=== PATIENT | male | born 1970 | race Two or more races ===

== ENCOUNTER 2023-12-15 12:31 | Emergency (ER) | payer OTHER ==
[~2023-12-15] VITALS: Ht 180.3 cm; Wt 77.1 kg
[2023-12-15] MEDS ORDERED: ADULT ASPIRIN81 MG PO (12:41)
[2023-12-15 13:45] LABS: HEMOGLOBIN 15.5 g/dL (13-16.00); MEAN CELL VOLUME 93.8 fL (80.0-100.00); MEAN CORPUSCULAR HEMOGLOBIN 32.3 pg (27.00-32.0); MEAN CORPUSCULAR HGB CONC 34.5 g/dl (32.0-36.0); PLATELET COUNT 208 K/uL (150-450); RED CELL DISTRIBUTION WIDTH 12.3 % (11.5-14.5)
[2023-12-15 14:11] LABS: CALCIUM 9.4 mg/dL (8.5-10.1); CREATININE SERUM 0.93 mg/dL (0.70-1.30); GFR 84.99; POTASSIUM 4.03 mEq/L (3.5-5.1)
[2023-12-15 14:51] LABS: URINE APPEARANCE Clear; URINE BILIRRUBIN Negative (NEGATIVE); URINE BLOOD Negative; URINE COLOR Dark Yellow; URINE GLUCOSE Negative (NEGATIVE); URINE LEUKOCYTE Negative; URINE NITRATE Negative; URINE PROTEIN Negative (NEGATIVE)
[2023-12-15 15:00] LABS: URINE BACTERIA 7.5 uL (0.0-1933); URINE RBC 3.7 uL (0.0-20.8)
[2023-12-15 15:05] LABS: URINE EPITHELIAL CELLS 0.6 uL (0.0-38.8); URINE WBC 0.7 uL (0.0-23.2)
[2023-12-15] MEDS ORDERED: KETOROLAC TROMETHAMINE 30 MG VIAL IM STA (15:51)
== END 2023-12-15 16:21 | disposition home or self-care (01) ==
LOC: ER 12:32
PROVIDERS: General Practice
DX: N50.812 Left testicular pain (principal); N44.2 Benign cyst of testis; Z88.8 Allergy status to other drugs, medicaments and biological substances

== ENCOUNTER 2024-05-30 12:20 | Emergency (ER) | payer OTHER ==
[~2024-05-30] VITALS: Ht 180.3 cm; Wt 77.1 kg
[~2024-05-30 12:20] MED LIST: ADULT ASPIRIN81 MG PO
[2024-05-30] MEDS ORDERED: KETOROLAC TROMETHAMINE 30 MG VIAL IV ONE (15:00)
[2024-05-30] MEDS ORDERED: KETOROLAC TROMETHAMINE 30 MG VIAL ONE (15:08)
[2024-05-30 15:55] LABS: HEMATOCRIT 46.3 % (39.0-48.0); HEMOGLOBIN 15.7 g/dL (13-16.00); MEAN CELL VOLUME 91.5 fL (80.0-100.00); MEAN CORPUSCULAR HGB CONC 33.9 g/dl (32.0-36.0); PLATELET COUNT 206 K/uL (150-450); RED BLOOD COUNT 5.06 M/uL (4.00-6.00); RED CELL DISTRIBUTION WIDTH 12.6 % (11.5-14.5)
[2024-05-30 16:14] LABS: CALCIUM 9.8 mg/dL (8.5-10.1); CREATININE SERUM 0.9 mg/dL (0.70-1.30); GFR 88.27; POTASSIUM 5.16 mEq/L (3.5-5.1)
[2024-05-30 16:27] LABS: PH,URINE 5.5 (5.0-8.0); URINE BILIRRUBIN Negative (NEGATIVE); URINE BLOOD Negative; URINE COLOR Yellow; URINE GLUCOSE Negative (NEGATIVE); URINE KETONE Trace (NEGATIVE); URINE LEUKOCYTE Negative; URINE NITRATE Negative; URINE PROTEIN Negative (NEGATIVE); URINE UROBILINOGEN 0.2 E.U./dl
[2024-05-30 16:39] LABS: URINE BACTERIA 1.2 uL (0.0-1933); URINE EPITHELIAL CELLS 0.6 uL (0.0-38.8); URINE RBC 1.2 uL (0.0-20.8); URINE WBC 0.9 uL (0.0-23.2)
[2024-05-30 16:40] LABS: URINE APPEARANCE CLEAR
[2024-05-30] MEDS ORDERED: METHYLPREDNISOLONE SOD SUCC 125 MG VIAL IV ONE (17:15)
[2024-05-30] MEDS ORDERED: ORPHENADRINE CITRATE 100 MG TABLET PO ONE (17:15)
[2024-05-30] MEDS ORDERED: TAMSULOSIN HCL 0.4 MG CAP PO ONE ×2 (17:30→18:07)
[2024-05-30] MEDS ORDERED: TAMS0.4C PO (17:31)
[2024-05-30] MEDS ORDERED: LEVOFLOXACIN500 MG PO (17:31)
[2024-05-30] MEDS ORDERED: DICLOFENAC SODI50 MG PO (17:31)
[2024-05-30] MEDS ORDERED: METHYLPREDNISOLONE SOD SUCC 125 MG VIAL ONE (18:07)
== END 2024-05-30 18:13 | disposition home or self-care (01) ==
LOC: ER 12:21
PROVIDERS: Nurse Practitioner Family
DX: N40.0 Benign prostatic hyperplasia without lower urinary tract symptoms (principal); R10.2 Pelvic and perineal pain; Z88.8 Allergy status to other drugs, medicaments and biological substances